=== PATIENT | male | born 1995 | race Caucasian/White ===

== ENCOUNTER 2016-12-12 10:55 | Emergency (ER) | payer OTHER | END 2016-12-12 11:05 | disposition home or self-care (01) | LOC: CFTX 10:55 | DX: S61.451A Open bite of right hand, initial encounter (principal); F17.200 Nicotine dependence, unspecified, uncomplicated; Z23 Encounter for immunization; Z98.890 Other specified postprocedural states; Z88.5 Allergy status to narcotic agent; W55.01XA Bitten by cat, initial encounter; Y92.009 Unspecified place in unspecified non-institutional (private) residence as the place of occurrence of the external cause | CPT/HCPCS: 90471; 90715; 99283 ==

== ENCOUNTER 2016-12-14 17:22 | Emergency (ER) | payer OTHER | END 2016-12-14 17:30 | disposition home or self-care (01) | LOC: CED 17:22 | DX: S61.451D Open bite of right hand, subsequent encounter (principal); F31.9 Bipolar disorder, unspecified; F42.9 Obsessive-compulsive disorder, unspecified; F17.200 Nicotine dependence, unspecified, uncomplicated; Z88.5 Allergy status to narcotic agent; W55.01XD Bitten by cat, subsequent encounter | CPT/HCPCS: 99281; 99282 ==